=== PATIENT | male | born 1995 | race Caucasian/White ===

== ENCOUNTER 2018-04-12 10:07 | Outpatient (CLI) ==
[2015-12-18 14:39] VITALS: BMI 27.1
== END 2018-04-12 10:34 | disposition short-term general hospital (02) ==
LOC: AMBL 10:07
PROVIDERS: ATTEND Internal Medicine Geriatric Medicine
DX: G40.909 Epilepsy, unspecified, not intractable, without status epilepticus (principal); R06.4 Hyperventilation; I10 Essential (primary) hypertension; R20.0 Anesthesia of skin